=== PATIENT | male | born 1995 | race Caucasian/White ===

== ENCOUNTER 2017-11-05 05:07 | Emergency (ER) | payer SELFPAY ==
[~2017-11-05] VITALS: Ht 165.1 cm; Wt 54.4 kg
[2017-11-05 05:08] VITALS: BP 114/71
--- NOTE | 2017-11-05 05:08 | NUR ---
PATIENT PRESENTS TO ED BIBA WITH ETOH. PT DENIES N/V/D; SKIN IS PINK/WARM/DRY; AAOX4 WITH EVEN AND STEADY GAIT; LUNGS CLEAR BL; HR EVEN AND REGULAR; PT DENIES ANY FEVER, CP, SOB, OR COUGH AT THIS TIME; PATIENT STATES PAIN OF 0/10 AT THIS TIME; VSS; PATIENT POSITIONED FOR COMFORT; HOB ELEVATED; BEDRAILS UP X1; BED DOWN. ER MD MADE AWARE OF PT STATUS.
[2017-11-05 05:35] VITALS: BP 114/71
--- NOTE | 2017-11-05 05:36 | NUR ---
Patient discharged with v/s stable. Written and verbal after care instructions given and explained. Patient verbalized understanding. Ambulatory with steady gait. All questions addressed prior to discharge. Advised to follow up with PMD.
== END 2017-11-05 05:35 | disposition home or self-care (01) ==
LOC: MED 05:07
DX: F10.129 Alcohol abuse with intoxication, unspecified (principal)
CPT/HCPCS: 99283